=== PATIENT | female | born 1930 | race Caucasian/White ===

== ENCOUNTER 2018-05-08 20:24 | Emergency (ER) | payer MEDICARE ==
--- NOTE | 2018-05-08 21:01 | ERPHSYRPT ---
- History of Present Illness Time Seen by Provider: 05/08/18 20:30 Source: patient, family Exam Limitations: no limitations Physician History: 87 y/o white female began having several episodes of n/v today. pt has been having intermittent fevers. 6 days ago pt was found to have a uti and was started on nitrofurantoin. sx not improved. pt was seen by an outpt provider this am and given bactrim ds. no new ua obtained. pt denies cp, denies cough, denies abd pain. Timing/Duration: today Severity: moderate Modifying Factors: Improves With: nothing Associated Symptoms: nausea, vomiting, No abdominal pain, No shortness of breath , No heartburn, No diaphoresis, No chest pain, No fever, No headaches, No loss of appetite, No malaise, No syncope, No seizure, No weakness Allergies/Adverse Reactions: No Known Drug Allergies Allergy (Unverified 05/08/18 20:49) Home Medications: Alendronate Sodium 70 mg PO WEEKLY 05/08/18 [History] Calcium/FA/Multivits-Min [Viactiv Multi-Vitamin Soft Chw] 1 each PO BID [History] Levothyroxine Sodium 75 mcg PO DAILY 05/08/18 [History] Meclizine HCl 25 mg [Antivert 25 mg] 25 mg PO Q12H PRN PRN 05/08/18 [ History] Nitrofurantoin Monohyd/M-Cryst [Nitrofurantoin Pender-Mcr 100 mg] 100 mg PO BID [History] - Review of Systems Constitutional: No Symptoms, No Fever, No Chills Eyes: No No Symptoms, No Discharge, No Eye Pain Ears, Nose, & Throat: No Symptoms, No Ear Pain, No Ear Discharge, No Hearing Changes Respiratory: No Symptoms, No Cough, No Dyspnea, No Stridor, No Wheezing Cardiac: No Symptoms, No Chest Pain, No Palpitations, No Syncope Abdominal/Gastrointestinal: Nausea, Vomiting, No No Symptoms, No Abdominal Pain , No Diarrhea Genitourinary Symptoms: No No Symptoms, No Dysuria, No Frequency, No Hematuria, No Flank Pain Musculoskeletal: No Symptoms, No Back Pain, No Neck Pain, No Deformity, No Fall , No Injury Skin: No No Symptoms, No Cellulitis, No Decubiti, No Induration, No Pruritis, No Rash Neurological: No Symptoms, No Dizziness, No Focal Weakness, No Headache Psychological: No Symptoms, No Alcohol Abuse, No Drug Abuse, No Anxiety, No Mood Changes Endocrine: No Symptoms, No Polyuria, No Polydipsia Hematologic/Lymphatic: No Symptoms Immunological/Allergic: No Symptoms All Other Systems: Reviewed and Negative - Past Medical History Pertinent Past Medical History: Yes Neurological History: No Pertinent History ENT History: No Pertinent History Cardiac History: No Pertinent History Respiratory History: No Pertinent History Endocrine Medical History: No Pertinent History Musculoskeletal History: No Pertinent History GI Medical History: No Pertinent History History: No Pertinent History Psycho-Social History: No Pertinent History Female Reproductive Disorders: No Pertinent History - Past Surgical History Neuro Surgical History: No Pertinent History Cardiac: No Pertinent History Respiratory: No Pertinent History Gastrointestinal: No Pertinent History Genitourinary: No Pertinent History Musculoskeletal: No Pertinent History Female Surgical History: No Pertinent History - Nursing Vital Signs Nursing Vital Signs: Initial Vital Signs Temperature 97.8 F 05/08/18 20:35 Pulse Rate 61 05/08/18 20:35 Respiratory Rate 16 05/08/18 20:35 Blood Pressure 150/81 05/08/18 20:35 O2 Sat by Pulse Oximetry 93 L 05/08/18 20:35 Pain Scale Pain Intensity 0 - Physical Exam General Appearance: mild distress, alert, anxiety Eye Exam: PERRL/EOMI, eyes nml inspection Ears, Nose, Throat Exam: normal ENT inspection, moist mucous membranes Neck Exam: normal inspection, non-tender, supple, full range of motion Respiratory Exam: normal breath sounds, lungs clear, airway intact, No chest tenderness, No respiratory distress, No diminished breath sounds, No accessory muscle use, No rhonchi, No wheezing, No stridor Cardiovascular Exam: regular rate/rhythm, normal heart sounds, normal peripheral pulses Gastrointestinal/Abdomen Exam: soft, normal bowel sounds, No tenderness, No guarding, No rebound Pelvic Exam: not done Rectal Exam: not done Back Exam: normal inspection, normal range of motion, No CVA tenderness, No vertebral tenderness Extremity Exam: normal inspection, normal range of motion, pelvis stable Neurologic Exam: alert, oriented x 3, cooperative, 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, normal mood/affect, nml cerebellar function, nml station & gait Skin Exam: normal color, warm, dry Lymphatic Exam: No adenopathy SpO2 Interpretation: normal Oxygen Delivery: Room Air Ordered Tests: Active Orders 24 hr Category Date Time Status Clean Catch Urine Specimen STAT Care 05/08/18 21:04 Active IV Insertion STAT Care 05/08/18 21:04 Active AMYLASE Stat Lab 05/08/18 21:00 Completed CBC W DIFF Stat Lab 05/08/18 21:00 Completed CMP Stat Lab 05/08/18 21:00 Completed LIPASE Stat Lab 05/08/18 21:00 Completed Lactic Acid Stat Lab 05/08/18 21:04 Completed UA W/RFX UR CULTURE Stat Lab 05/08/18 21:20 Completed Medication Summary Discontinued Medications Generic Name Dose Route Start Last Admin Trade Name Freq PRN Reason Stop Dose Admin Sodium Chloride 1,000 mls @ 999 mls/hr 05/08/18 21:04 05/08/18 21:09 Sodium Chloride 0.9% 1000 Ml IV 05/08/18 22:04 999 mls/hr .Q1H1M STA Administration Sodium Chloride Confirm 05/08/18 21:08 Sodium Chloride 0.9% 1000 Ml Administered 05/08/18 21:09 Dose 1,000 mls @ ud .ROUTE .STK-MED ONE Sodium Chloride 500 mls @ 999 mls/hr 05/08/18 22:57 05/08/18 23:02 Sodium Chloride 0.9% 1000 Ml IV 05/08/18 23:27 999 mls/hr .Q31M STA Administration Sodium Chloride Confirm 05/08/18 23:00 Sodium Chloride 0.9% 500 Ml Administered 05/08/18 23:01 Dose 500 mls @ ud IV .STK-MED ONE Ondansetron HCl 4 mg 05/08/18 21:04 05/08/18 23:18 Zofran 4 Mg/2 Ml Vial IV 05/08/18 21:05 Not Given STAT ONE Ondansetron HCl Confirm 05/08/18 21:08 Zofran 4 Mg/2 Ml Vial Administered 05/08/18 21:09 Dose 4 mg .ROUTE .STK-MED ONE Lab/Rad Data: Laboratory Result Diagrams 05/08/18 21:00 05/08/18 21:00 Laboratory Results 05/08/18 05/08/18 05/08/18 Range/Units 21:20 21:04 21:00 WBC (4.0-10.5) K/mm3 RBC (4.1-5.4) M/mm3 Hgb (12.0-16.0) gm/dl Hct (35-47) % MCV (78-100) fl MCH (26-32) pg MCHC (32-36) g/dl RDW (11.5-14.0) % Plt Count (150-450) K/mm3 MPV (6-9.5) fl Gran % (36.0-66.0) % Eos # (Auto) (0-0.5) Absolute Lymphs (auto) (1.0-4.6) Absolute Monos (auto) (0.0-1.3) Lymphocytes % (24.0-44.0) % Monocytes % (0.0-12.0) % Eosinophils % (0.00-5.0) % Basophils % (0.0-0.4) % Absolute Granulocytes (1.4-6.9) Basophils # (0-0.4) Sodium 137 (137-145) mmol/L Potassium 3.9 (3.5-5.1) mmol/L Chloride 101 (98-107) mmol/L Carbon Dioxide 21 L (22-30) mmol/L Anion Gap 19.0 H (5-15) MEQ/L BUN 12 (7-17) mg/dL Creatinine 0.94 (0.52-1.04) mg/dL Estimated GFR > 60.0 ML/MIN Glucose 135 H (74-106) mg/dL Lactic Acid 1.1 (0.4-2.0) Calcium 9.6 (8.4-10.2) mg/dL Total Bilirubin 1.90 H (0.2-1.3) mg/dL AST 156 H (14-36) U/L ALT 135 H (0-35) U/L Alkaline Phosphatase 232 H (38-126) U/L Serum Total Protein 8.3 H (6.3-8.2) g/dL Albumin 4.7 (3.5-5.0) g/dL Amylase 184 H (30-110) U/L Lipase 268 (23-300) U/L Urine Color DARK YELLOW (YELLOW) Urine Appearance CLEAR (CLEAR) Urine pH 5.0 (5-6) Ur Specific Decker 1.014 (1.005-1.025) Urine Protein NEGATIVE (Negative) Urine Ketones SMALL (NEGATIVE) Urine Blood NEGATIVE (0-5) Hugo/ul Urine Nitrite NEGATIVE (NEGATIVE) Urine Bilirubin NEGATIVE (NEGATIVE) Urine Urobilinogen 2 (0-1) mg/dL Ur Leukocyte Esterase NEGATIVE (NEGATIVE) U Epithel Cells (Auto) NONE SEEN (FEW) /HPF Urine Culture Reflexed NO (NO) Urine Glucose NEGATIVE (NEGATIVE) mg/dL 05/08/18 Range/Units 21:00 WBC 10.9 H (4.0-10.5) K/mm3 RBC 5.63 H (4.1-5.4) M/mm3 Hgb 15.0 (12.0-16.0) gm/dl Hct 45.0 (35-47) % MCV 79.9 (78-100) fl MCH 26.6 (26-32) pg MCHC 33.3 (32-36) g/dl RDW 15.5 H (11.5-14.0) % Plt Count 255 (150-450) K/mm3 MPV 10.6 H (6-9.5) fl Gran % 82.1 H (36.0-66.0) % Eos # (Auto) 0.03 (0-0.5) Absolute Lymphs (auto) 1.04 (1.0-4.6) Absolute Monos (auto) 0.86 (0.0-1.3) Lymphocytes % 9.5 L (24.0-44.0) % Monocytes % 7.9 (0.0-12.0) % Eosinophils % 0.3 (0.00-5.0) % Basophils % 0.2 (0.0-0.4) % Absolute Granulocytes 8.95 H (1.4-6.9) Basophils # 0.02 (0-0.4) Sodium (137-145) mmol/L Potassium (3.5-5.1) mmol/L Chloride (98-107) mmol/L Carbon Dioxide (22-30) mmol/L Anion Gap (5-15) MEQ/L BUN (7-17) mg/dL Creatinine (0.52-1.04) mg/dL Estimated GFR ML/MIN Glucose (74-106) mg/dL Lactic Acid (0.4-2.0) Calcium (8.4-10.2) mg/dL Total Bilirubin (0.2-1.3) mg/dL AST (14-36) U/L ALT (0-35) U/L Alkaline Phosphatase (38-126) U/L Serum Total Protein (6.3-8.2) g/dL Albumin (3.5-5.0) g/dL Amylase (30-110) U/L Lipase (23-300) U/L Urine Color (YELLOW) Urine Appearance (CLEAR) Urine pH (5-6) Ur Specific Decker (1.005-1.025) Urine Protein (Negative) Urine Ketones (NEGATIVE) Urine Blood (0-5) Hugo/ul Urine Nitrite (NEGATIVE) Urine Bilirubin (NEGATIVE) Urine Urobilinogen (0-1) mg/dL Ur Leukocyte Esterase (NEGATIVE) U Epithel Cells (Auto) (FEW) /HPF Urine Culture Reflexed (NO) Urine Glucose (NEGATIVE) mg/dL - Progress Progress: improved, re-examined Progress Note: 05/08/18 23:35 pt states she is feeling much better. Counseled pt/family regarding: lab results, diagnosis, need for follow-up - Departure Time of Disposition: 23:36 Departure Disposition: Home Clinical Impression: Vomiting, Elevated liver enzymes Condition: Stable Critical Care Time: No Referrals: MARCO ANTONIO GRACE [Primary Care Provider] - Additional Instructions: drink plenty of clear liquids. avoid fatty, greasy, spicy foods. follow up with dr. grace tomorrow morning Prescriptions: Ondansetron HCl [Zofran] 4 mg PO TID PRN #10 tablet PRN Reason: Nausea/Vomiting
[2018-05-08] MEDS ORDERED: Sodium Chloride 0.9% 1000 ML 1,000 ML IV STA (21:04)
[2018-05-08] MEDS ORDERED: Zofran 4 MG/2 ML VIAL IV ONE (21:04)
[2018-05-08] MEDS ORDERED: Sodium Chloride 0.9% 1000 ML 1,000 ML ONE (21:08)
[2018-05-08] MEDS ORDERED: Zofran 4 MG/2 ML VIAL ONE (21:08)
[2018-05-08 21:11] LABS: BASOPHIL % 0.2 % (0.0-0.4); Basophil (Absolute #) 0.02 (0-0.4); Eosinophil % 0.3 % (0.00-5.0); Eosinophil (Absolute #) 0.03 (0-0.5); Granulocyte Absolute (ANC) 8.95 (1.4-6.9); Granulocytes % 82.1 % (36.0-66.0); Lymphocyte (Absolute #) 1.04 (1.0-4.6); Lymphocytes % 9.5 % (24.0-44.0); Mean Cell Volume 79.9 fl (78-100); Mean Corpuscular Hemoglobin 26.6 pg (26-32); Mean Corpuscular Hgb Concent. 33.3 g/dl (32-36); Mean Platelet Volume 10.6 fl (6-9.5); Monocyte (Absolute #) 0.86 (0.0-1.3); Monocytes % 7.9 % (0.0-12.0); Platelet Count 255 K/mm3 (150-450); Red Blood Count 5.63 M/mm3 (4.1-5.4); Red Cell Distribution Width 15.5 % (11.5-14.0); White Blood Count 10.9 K/mm3 (4.0-10.5)
[2018-05-08 21:21] LABS: ALBUMIN 4.7 g/dL (3.5-5.0); ALKALINE PHOSPHATASE 232 U/L (38-126); AMYLASE 184 U/L (30-110); BLOOD UREA NITROGEN 12 mg/dL (7-17); CHLORIDE 101 mmol/L (98-107); Calcium 9.6 mg/dL (8.4-10.2); Carbon Dioxide 21 mmol/L (22-30); Creatinine 1 0.94 mg/dL (0.52-1.04); Glucose 135 mg/dL (74-106); LIPASE 268 U/L (23-300); Potassium 3.9 mmol/L (3.5-5.1); SGOT/AST 156 U/L (14-36); SGPT/ALT 135 U/L (0-35); SODIUM 137 mmol/L (137-145); Total Protein 8.3 g/dL (6.3-8.2)
[2018-05-08 21:38] LABS: Appearance CLEAR (CLEAR); Bilirubin NEGATIVE (NEGATIVE); Blood NEGATIVE Ery/ul (0-5); Glucose NEGATIVE (NEGATIVE); Ketones SMALL (NEGATIVE); Leukocyte Esterase NEGATIVE (NEGATIVE); Nitrite NEGATIVE (NEGATIVE); Protein,Urine Dip NEGATIVE (Negative); Specific Gravity 1.014 (1.005-1.025); Urobilinogen 2 mg/dL (0-1)
[2018-05-08 21:57] VITALS: PULSE 82
[2018-05-08 22:51] VITALS: O2SAT 96
[2018-05-08] MEDS ORDERED: Sodium Chloride 0.9% 500 ML 500 ML IV ONE (23:00)
[2018-05-08 23:52] VITALS: BP 153/87
[2018-05-12 22:33] LABS: HEPATITIS B VIRUS CORE TOT AB Non Reactive (Non Reactive); HEPATITIS C VIRUS ANTIBODY Non Reactive (Non Reactive); Hepatitis B Surface Antigen Non Reactive (Non Reactive)
== END 2018-05-08 23:59 | disposition home or self-care (01) ==
LOC: ED 20:24
DX: R11.10 Vomiting, unspecified (principal); R74.8 Abnormal levels of other serum enzymes; N39.0 Urinary tract infection, site not specified; Z79.899 Other long term (current) drug therapy
CPT/HCPCS: 36000; 36415; 80053; 80074; 81003; 82150; 83605; 83690; 85025; 96360; 96374; 99284; J2405